=== PATIENT | male | born 1945 | race Caucasian/White ===

== ENCOUNTER 2017-07-19 09:18 | Inpatient (IN) | payer OTHER ==
[~2017-07-19] VITALS: Ht 177.8 cm; Wt 131.5 kg
--- NOTE | ~2017-07-19 | O ---
[facility] [place] [address] OPERATIVE REPORT Name: EDEL DUQUE Room #: 200-I ADM IN M.R.#: [id number] Admission: 07/19/17 Attend Phys: Bolivar Berry MD Discharge: Date of : 43 Report #: [id number] THIS REPORT FOR: //name// CC: JOHN Berry DATE OF SERVICE: 07/21/2017 SURGEON: Kaiden Reyez MD MOVING PICTURE OPERATOR: None. PREOPERATIVE DIAGNOSES: 1. Choledocholithiasis (status post preoperative ERCP with stone extraction and sphincterotomy). 2. Coronary artery disease status post CABG and cardiac stents x 3. 3. Obstructive sleep apnea. 4. Benign prostatic hypertrophy. 5. Morbid obesity (BMI 41.2). 6. Hyperlipidemia. 7. Gastroesophageal reflux disease. POSTOPERATIVE DIAGNOSES: 1. Acute hemorrhagic cholecystitis. 2. Choledocholithiasis (status post preoperative ERCP with stone extraction and sphincterotomy). 3. Coronary artery disease status post CABG and cardiac stents x 3. 4. Obstructive sleep apnea. 5. Benign prostatic hypertrophy. 6. Morbid obesity (BMI 41.2). 7. Hyperlipidemia. 8. Gastroesophageal reflux disease. PROCEDURE: 1. Laparoscopic cholecystectomy. 2. This is a modifier 22 operation based on the length of time necessary to perform the operation. The patient's morbid obesity/body habitus made visualization difficult. An additional 5 mm port was required to retract intra-abdominal content out of the way to gain visualization of the cystic duct. Coupled with acute inflammatory changes involving gallbladder and cystic duct (making cholangiogram not technically possible), this was quite a long operation causing this operation to take 2 hours and 16 minutes, substantially longer than the usual cholecystectomy with cholangiogram which takes 30-40 minutes. ANESTHESIA: General endotracheal anesthesia and local anesthetic. [facility] [address] [place] [address] OPERATIVE REPORT Name: EDEL DUQUE Minna Room #: 200-I [facility] IN [facility]#: [id number] Admission: 07/19/17 Attend Phys: Bolivar Berry MD Discharge: Date of : 44 Report #: [id number] ESTIMATED BLOOD LOSS: 50 mL. SPECIMEN: Gallbladder. COMPLICATIONS: None appreciated. INDICATIONS FOR PROCEDURE: This is a 72-year-old male patient who presented with several day history of epigastric/right upper quadrant abdominal pain after eating pizza on Monday. His cardiac enzymes are elevated. However, his chest pain was ruled to be noncardiac in nature. The patient was found to have a distended gallbladder with ductal dilatation on ultrasound with no evidence for gallbladder wall thickening or pericholecystic fluid. A positive sonographic Trent sign was present. The patient's bilirubin increased and an MRCP revealed choledocholithiasis. The patient underwent an ERCP with stone extraction and sphincterotomy. The patient was noted to be a difficult airway and based on this, it was elected to perform his cholecystectomy immediately after his ERCP, which required endotracheal intubation rather than extubating the patient and putting him through another intubation. Cholecystectomy is indicated. OPERATIVE FINDINGS: Upon entrance into the abdominal cavity, the gallbladder was seen to be acutely inflamed with omentum covering the gallbladder. Upon unroofing the gallbladder, it was acutely inflamed with hemorrhagic changes. The patient's liver, small bowel and stomach appeared normal in the surrounding area. He had moderate amount of intraabdominal tissue that occluded the view of the cystic duct and as a result of this, I elected to place another 5 mm port to retract the tissue to see. The patient required extreme positioning as well. The critical view consisting of cystic artery, cystic duct and lower edge of the gallbladder forming a window through which the liver was visible was seen prior to dividing the cystic duct. The duct itself was thickened/acutely inflamed and short and this precluded my ability to perform a cholangiogram. After dividing the duct, it slightly retracted and was difficult to manage in that I was unable to place an Endoloop on the duct for closure. I ultimately had to intracorporeally place a uscdoi-lm-txear 3-0 Vicryl suture for closure of this. The cystic duct was also sealed with Tisseel. After removing the gallbladder from the abdominal cavity, there was an area of bile emanating from the liver bed. This required placement of a 3-0 Vicryl suture as well with good control of the leak. This too was reinforced with Tisseel. A 8 mL of Tisseel was used in total. At the conclusion of the operation, the sponge, needle, and instrument counts were correct. There was no evidence for iatrogenic injury. The gallbladder was opened on the backtable. Sludge and a few small stones were seen within the gallbladder with acute hemorrhagic changes transmurally. DESCRIPTION OF PROCEDURE IN DETAIL: After the risks, benefits and expectations of the operation were discussed in detail with the patient, informed consent was obtained earlier today with a planned surgery for tomorrow. The patient [facility] [address] [place] [address] OPERATIVE REPORT Name: EDEL DUQUE Room #: 200-I [facility] IN [place]#: [id number] Admission: 07/19/17 Attend Phys: Bolivar Berry MD Discharge: Date of : 44 Report #: [id number] underwent an ERCP and again, due to his difficult airway, it was elected to not extubate the patient but rather keep him intubated and perform his operation today. He has been receiving scheduled IV antibiotics. He was taken to the operating room and placed in the supine position. SCDs were placed on the patient's bilateral lower extremities and pneumatic compression was initiated. The patient's abdomen was then prepped and draped in the standard sterile fashion. A timeout was performed to identify the correct patient and procedure. Local anesthetic was infiltrated into the skin and subcutaneous tissue in the supraumbilical area where a small curvilinear incision was made with #15 blade scalpel. Dissection was carried down to the fascia. A 10 mm port was then placed intraperitoneally with a 0-degree angled laparoscope. Pneumoperitoneum was achieved with insufflation of carbon dioxide to 15 mmHg. A 30-degree angled laparoscope was inserted. A subxiphoid 5 mm and right subcostal 5 mm ports x 2 were placed under direct visualization after local anesthetic was infiltrated into skin and subcutaneous tissue and appropriately sized incisions were made. Findings are as noted above. The patient was rotated to his left. The dome of the gallbladder was retracted in cephalad direction. The omentum was peeled off the gallbladder. However, visualization of the cystic duct was not possible. An additional 5-mm port was placed under direct visualization after local anesthetic was infiltrated into the skin and subcutaneous tissue and an appropriately sized incision was made. The port was placed in the right lower abdomen through a small transverse incision. The small bowel and omentum were retracted inferiorly in order to visualize the area. The gallbladder peritoneum was then scored medially and laterally with the ultrasound dissector and electrocautery. Dissection was carried out on the cystic artery and cystic duct to identify both structures as the only 2 structures entering the gallbladder. The cystic duct itself was thickened and short and at this point, I recognized that a cholangiogram was not technically possible. The duct also appeared to be dilated. The cystic artery was divided with the ultrasonic dissector with good hemostasis. The cystic duct was divided with the ultrasonic dissector at its junction with the neck of the gallbladder. Prior to dividing the cystic duct, the cystic duct was dissected as much as possible so that I would have room for placement of an Endoloop. After dividing the duct, the duct retracted and I attempted to place PDS Endoloops x 2 without success. I then elected to close the cystic duct with a hiuiko-gu-zuipx 3-0 Vicryl suture intracorporeally. This was performed without difficulty. The gallbladder was then dissected out of the liver bed with combination of electrocautery and the ultrasound dissector. Bleeding points were made hemostatic with electrocautery while dissecting the gallbladder free. The gallbladder was then completely detached from the liver bed, placed in an Endopouch and removed through the supraumbilical port site with some stretching of the fascia. A zyldwh-jp-zpvbt 0 PDS suture was placed under direct visualization with the Dago-Simran laparoscopic fascial closure device. The suture was tagged and the port was replaced. The abdominal cavity was reentered. The liver bed appeared hemostatic and the suture on the cystic duct appeared to be secure. Upon further examination of the liver bed, there [address] [address] OPERATIVE REPORT Name: EDEL DUQUE Room #: 200-I ADM IN M.R.#: [id number] Admission: 07/19/17 Attend Phys: Bolivar Berry MD Discharge: Date of : 44 Report #: [id number] appeared to be some bile emanating from a small ductule in the liver bed. This may have represented a duct of Luschka. An additional joyhwj-ti-zdcve 3-0 Vicryl suture was placed with good control of the bile leak. Bleeding points were made hemostatic with electrocautery. After suctioning the abdominal cavity and ensuring final hemostasis and no further bile leak, 8 mL of Tisseel was applied to the liver bed and cystic duct with the Curselospray aerosolizer. After doing so, a 19-Namibian JHON drain was placed within the abdominal cavity and brought out through the right lateral port site. The drain was secured to the skin with a 2-0 nylon suture. Intraabdominally, the drain was positioned such that it would lie along the subhepatic space. The abdominal cavity was suctioned and return of all drainage ran clear. No other significant intra-abdominal pathology was seen. The port was removed and the fascial suture was tied under direct visualization to ensure no incorporation of intra-abdominal content. The abdominal cavity was then desufflated and the remaining ports were removed. Interrupted subcuticular 4-0 Monocryl sutures and Dermabond were used to close the skin incisions. The patient tolerated the procedure well. He was awakened, extubated, and taken to recovery room in stable condition with no apparent intraoperative complications. <ELECTRONICALLY SIGNED> By: Kaiden Reyez MD, FACS 07/23/17 1129 1807 1859 Kaiden Reyez MD, FACS /nt
--- NOTE | ~2017-07-19 | EKG ---
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 : 1945 Requested By: Jessika Abbott Order Number: [id number] MD: Rob Bergeron Measurements Intervals Tunas Rate: 74 P: -12 [place]: 200 QRS: 24 QRSD: 121 T: 26 QT: 429 QTc: 476 Interpretive Statements Sinus rhythm Poor R wave progression Nonspecific ST and T wave abnormality Compared to ECG 12/26/2011 07:55:43 Inferior injury pattern is no longer present Electronically Signed On 07-20-2017 8:17:44 CHARGE ENTRY CLERK by Rob Bergeron [email or web address] <ELECTRONICALLY SIGNED> By: Rob Bergeron MD, [facility] 07/20/17 0817 09 Rob Bergeron MD, [facility] /EPI
--- NOTE | ~2017-07-19 | HC ---
[facility] [place] [address] CONSULTATION Name: EDEL DUQUE Room #: 200-I ADM IN .R.#: [id number] Admission: 07/19/17 Attend Phys: Bolivar Berry MD Discharge: Date of : 44 Report #: [id number] THIS REPORT FOR: //name// CC: Estelle Adrien Berry DATE OF SERVICE: 07/19/2017 REFERRING PROVIDER: Bolivar Berry MD REASON FOR CONSULTATION: Abdominal pain. HISTORY OF PRESENT ILLNESS: The patient is a 72-year-old male who presented with a 4-day history of abdominal pain, bloating and nausea. The patient ate pizza for lunch on Monday and took a nap when he woke up with bloating and not feeling well. The patient took MiraLax and had a bowel movement and felt slightly better. The patient returned from [place] last week where he was visiting for a 2-week vacation and went to work on Monday and Monday. As the patient got off work on Monday, he began to develop epigastric abdominal pain with nausea and vomiting and underwent evaluation with laboratories and ultrasound of the abdomen as well as cardiology workup. The patient's labs showed just a very minimal leukocytosis with a white blood cell count of 12.5 thousand, otherwise his liver function numbers and hemoglobin were all within normal limits. Ultrasound of the abdomen showed a dilated common bile duct to 11 mm with a positive sonographic Trent sign. However, he had no evidence of gallbladder calculi, wall thickening or pericholecystic fluid seen. The patient has been seen by Gastroenterology for which an MRCP has been ordered, but I have been asked to evaluate in the meantime. 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 PAST SURGICAL HISTORY: He has undergone a CABG, tonsillectomy, wrist fracture repair and appendectomy. HOME MEDICATIONS: Aspirin, Lipitor, metoprolol, glucosamine/chondroitin, Flomax, nitroglycerin, Prilosec, Prozac, finasteride, Synthroid and multivitamin. ALLERGIES: No known drug allergies. FAMILY HISTORY: Reviewed and noncontributory. SOCIAL HISTORY: The patient does not utilize tobacco, alcohol or illicit drugs. [address] [address] CONSULTATION Name: EDEL DUQUE Room #: 200-I [facility] IN [facility]#: [id number] Admission: 07/19/17 Attend Phys: Bolivar Berry MD Discharge: Date of : 44 Report #: [id number] REVIEW OF SYSTEMS: GENERAL: The patient denies nocturnal fevers or chills. HEENT: No change in vision or change in hearing. NECK: No swelling or difficulty swallowing. HEART: No chest pain or palpitations. LUNGS: No cough or shortness of breath. ABDOMEN: Abdominal pain, nausea and vomiting. GENITOURINARY: No dysuria or hematuria. ENDOCRINE: No polyuria or polydipsia. HEMATOLOGIC: No history of bleeding or easy bruising. EXTREMITIES: No history of weakness or limited range of motion. NEUROLOGIC: No history of syncope or near syncopal episodes. SKIN AND INTEGUMENT: No history of abnormal lesions or moles. PSYCHIATRIC: No history of anxiety or depression. PHYSICAL EXAMINATION: VITAL SIGNS: Temperature 98.6, pulse 70, respirations 18 and blood pressure 148/79. He stands 5 feet 10 inches tall and weighs 278 pounds. GENERAL: Alert and oriented, in no acute distress. HEENT: Normocephalic and atraumatic. Pupils are equal, round and reactive to light. NECK: Supple without lymphadenopathy. Trachea is midline. HEART: Regular rate and rhythm. LUNGS: Clear to auscultation bilaterally. ABDOMEN: Obese, soft and nondistended. He is tender to palpation with deep palpation in the right upper quadrant, but does not have any guarding, rebound or peritoneal signs or symptoms. GENITOURINARY: Normal external male genitalia. EXTREMITIES: No clubbing, cyanosis or edema. NEUROLOGIC: Cranial nerves 2-12 are grossly intact. PSYCHIATRIC: Normal mood and affect. SKIN AND INTEGUMENT: No abnormal lesions or moles. LABORATORY AND X-RAY DATA: CBC shows white blood cell count of 12.5 thousand, hemoglobin 15.7 and platelets 217,000. He has a minimal left shift of 72% neutrophils. The patient's creatinine is normal at 0.9. Liver function enzymes are normal except his transaminases are just minimally elevated with an AST of 39 and ALT of 70. His bilirubin is normal at 0.9. Troponins negative. BNP is normal at 77. Ultrasound of the abdomen as per HPI shows a dilated common bile duct to 11 mm with a positive sonographic Trent sign, but no evidence of gallstones, gallbladder wall thickening or pericholecystic fluid. ASSESSMENT AND PLAN: A 72-year-old obese male with multiple medical problems who presents with a distended gallbladder with discomfort in the right upper quadrant and a dilated common bile duct, but no evidence of calculi. The [address] [address] CONSULTATION Name: EDEL DUQUE Room #: 200-I ADM IN [facility]#: [id number] Admission: 07/19/17 Attend Phys: Bolivar Brery MD Discharge: Date of : 44 Report #: [id number] patient could certainly have passed a stone and have early choledocholithiasis to where he has not mounted a laboratory response, but he could also have acute acalculous cholecystitis possibly from something he ate in [place]. Nonetheless, an MRCP has been ordered and I recommend continuation of this. If this is negative, he will necessitate a PIPIDA scan for definitive workup and possibly a laparoscopic cholecystectomy with cholangiogram. Risks, benefits and alternatives of that have been discussed with the patient in detail and he agrees to proceed with the workup as outlined. I sincerely appreciate this consult. I will follow closely and leave any further recommendations in the patient's chart as appropriate. <ELECTRONICALLY SIGNED> By: Ceasar Naranjo MD, FACS 07/20/17 0744 1727 Ceasar Naranjo MD, FACS /nt
--- NOTE | ~2017-07-19 | P ---
[facility] [place] [address] PROCEDURE REPORT Name: EDEL DUQUE Room #: 200-I [facility] IN .R.#: [id number] Admission: 07/19/17 Attend Phys: Bolivar Berry MD Discharge: 07/23/17 Date of : 44 Report #: [id number] THIS REPORT FOR: //name// CC: Estelle Reyez MD DATE OF SERVICE: 07/21/2017 INPATIENT ENDOSCOPIC RETROGRADE CHOLANGIOPANCREATOGRAPHY REPORT BRIEF HISTORY: The patient is a 72-year-old male with pain and evidence of dilated biliary tree and choledocholithiasis. PREOPERATIVE DIAGNOSIS: Choledocholithiasis. POSTOPERATIVE DIAGNOSES: 1. Choledocholithiasis. 2. Dilated biliary tree. MEDICATIONS: Deep sedation with propofol per anesthesia. SPECIMEN: Stone and sludge removed from duct, left in duodenum. ESTIMATED BLOOD LOSS: None. PROCEDURE: Endoscopic retrograde cholangiopancreatography with endoscopic sphincterotomy and stone extraction with balloon sweep. FINDINGS: Prior to intubation and general anesthesia, the procedure of ERCP, sphincterotomy, stone extraction as well as potential risks and its complications were discussed with the patient. He indicates he understands and desire that we proceed. DESCRIPTION OF PROCEDURE: The patient was taken to the invasive radiology suite and induced with general anesthesia and placed in the prone position. Subsequently, a Fuji side-viewing endoscope was inserted in the cervical esophagus and advanced through the stomach, across the pylorus into the duodenum. Within and duodenum, the papilla was identified. Initial cannulation of the papilla resulted in deep cannulation. Contrast was injected and he was noted to have a dilated biliary tree and the common hepatic duct, common bile duct and central hepatics were noted to be dilated. The area of maximum dilation in the common hepatic was about 10 mm. Injection of contrast revealed a filling defect in the distal duct consistent with a 4 mm stone seen on MRCP. Subsequently, a sphincterotomy was completed without difficulty. With the [facility] [address] [place] [address] PROCEDURE REPORT Name: EDEL DUQUE Minna Room #: 200-I [facility] IN [facility].#: [id number] Admission: 07/19/17 Attend Phys: Bolivar Berry MD Discharge: 07/23/17 Date of : 44 Report #: [id number] sphincterotomy, there was a gush of yellow bile from the biliary tree and a small amount of sludge and debris. We then made a balloon sweep and on first pass of the balloon sweep, a smooth, round 4 mm pigmented stone was removed from the biliary tree. Along with this came blackish sludge and particles and gravel-like material as well as a yellowish sludge material. We made several further balloon sweeps without additional stones being removed or identified. We then used a balloon the biliary tree and obtained a cholangiogram and the duct was clear. The balloon and catheter were withdrawn and there was good drainage from the common bile duct. Scope was withdrawn. The patient tolerated the procedure well. CONDITION OF THE PATIENT UPON DISPOSITION: ERCP and sphincterotomy and stone extraction completed. The patient tolerated the procedure well. We will keep the patient fasting for another 4 hours, then he may have clear liquids. If does well, laparoscopic cholecystectomy tomorrow would be reasonable. <ELECTRONICALLY SIGNED> By: Wei Chandra MD 07/25/17 1617 1326 2055 Wei Chandra MD /nt
--- NOTE | ~2017-07-19 | S ---
[facility] [place] [address] SURGICAL PATH RPT PROCEDURE Name: J[facility]SE [facility]SE Room #: 200-I DIS IN M.R.#: [id number] Admission: 07/19/17 Date of : 43 Discharge: 07/23/17 Report #: [id number] Path Case #: [id number] PATHOLOGY REPORT COLLECTION DATE: 07/21/2017 RECEIVED DATE: 07/24/2017 SUBMITTING PHYS: Dr. Kaiden Reyez OTHER PHYS: Dr. Bolivar Jurado SPECIMEN(S) RECEIVED: A.Gallbladder * * * * * * * * * * * * FINAL DIAGNOSIS: Gallbladder, cholecystectomy: - Moderate chronic cholecystitis. - Cholesterolosis. (IUV:db; 07/25/2017) PATHOLOGIST: Trinidad Amaya M.D. REPORT ELECTRONICALLY SIGNED BY: Trinidad Amaya M.D. DATE/TIME: 07/25/2017 15:37 * * * * * * * * * * * * GROSS PATHOLOGY: Received in formalin labeled "[facility]se House gallbladder," is a 10.1 x 4.4 x 3.9 cm, previously opened gallbladder with dark brown, wrinkled serosal surfaces. Opening the gallbladder reveals dark webb, velvety mucosa and an average wall thickness of 0.2 cm. Calculi are not present (upon filtration of the specimen container and contents) and no masses are noted grossly. Eye Glass Frame Polisher sections from the body and fundus are submitted along with the proximal margin in cassette A1. (TSD; 07/24/2017) CLINICAL HISTORY: Gallstone pancreatitis INITIAL CPT CODE(S): A; 29733 Professional services performed by [facility] at [facility] [address] , [place] [address] [facility] [address] [place] [address] SURGICAL PATH RPT PROCEDURE Name: JESSE HOUSE Room #: 200-I DIS IN M.R.#: [id number] Admission: 07/19/17 Date of : 43 Discharge: 07/23/17 Report #: [id number] Path Case #: [id number] Technical services performed by [facility] at [address] [place] [address], [place] [address]. [facility] [address] [place] [address] PHONE: [phone] DIRECTOR: Kb Lee M.D. * * * END OF REPORT * * *
[~2017-07-19 09:18] MED LIST: ADULT LOW DOSE81 MG PO; EFFIENT10 MG PO; FERREX-150 PLU150 MG PO; FINASTERIDE5 MG PO; GLUCOSAMINE CH1 EAC7 PO; HYDROCODON-ACE1 EAC7 PO; HYTRIN10 MG PO; LEVOTHROID175 MCG PO; LIPITOR40 MG PO; LOPRESSOR 12.12.5 MG PO; MULTIVITAMINS PO; NITROQUICK0.4 MG SUBLING; PERCOCET 5-3251 EACH PO; PHISOHEX148 ML TP; PLAVIX 75 MG TA75 MG PO; PRILOSEC 20 MG20 MG PO; PROZAC40 MG PO; SENOKOT-S1 TA1 PO; TAMSULOSIN HCL0.4 M1 PO; ZESTRIL10 MG PO; ZESTRIL5 MG PO
[2017-07-19 09:41] LABS: ABSOLUTE NEUTROPHILS 8.9 thou/uL (1.4-8.2); EOSINOPHILS 1.3 % (0.0-3.0); HEMOGLOBIN 15.7 gm/dL (14.0-18.0); LYMPHOCYTES 16.7 % (24.0-44.0); MCH 32.2 pg (26.0-34.0); MCV 94.5 fL (80.0-100.0); MONOCYTES 9.4 % (1.0-8.0); PLATELET COUNT 217 thou/uL (150-400); POLYS 71.6 % (36.0-66.0); RBC 4.87 mil/uL (4.50-6.00); RDW 13.8 % (10.5-14.5); WBC 12.5 thou/uL (4.0-11.0)
[2017-07-19 09:50] VITALS: BP 147/74
[2017-07-19 09:53] LABS: ANION GAP 9 mmol/L (7-16); BUN 13 mg/dL (7-18); CALCIUM 9.3 mg/dL (8.5-10.1); CHLORIDE 100 mmol/L (98-107); CO2 30 mmol/L (21-32); CREATININE 0.9 mg/dL (0.7-1.3); GLUCOSE 144 mg/dL (74-106); SODIUM 139 mmol/L (136-145)
[2017-07-19 10:01] LABS: ALBUMIN 3.8 g/dL (3.4-5.0); SGOT 39 U/L (15-37); SGPT 70 U/L (30-65); TOTAL BILIRUBIN 0.9 mg/dL (<0.1-1.0); TOTAL PROTEIN 7.7 g/dL (6.4-8.2); TROPONIN-I < 0.04 ng/mL (<0.06)
[2017-07-19 12:15] VITALS: BP 160/95
[2017-07-19 16:00] VITALS: BP 148/79
[2017-07-19 19:23] VITALS: BP 151/84
[2017-07-20 01:06] LABS: GLYCOHEMOGLOBIN (HGB A1C) 6.2 % (4.8-5.6)
[2017-07-20 03:18] LABS: CHOLESTEROL 98 mg/dL (<200); DIRECT BILIRUBIN 0.3 mg/dL (<0.1-0.3); HDL CHOLESTEROL 47 mg/dL (>40); LDL CHOLESTEROL 41 mg/dL (<100); LIPASE 79 U/L (73-393); SGOT 23 U/L (15-37); SGPT 48 U/L (30-65); TC:HDL 2.1 Ratio (Not establshd); TOTAL BILIRUBIN 1.2 mg/dL (<0.1-1.0); TRIGLYCERIDE 52 mg/dL (<150); VLDL 10 mg/dL (<40)
[2017-07-20 05:42] VITALS: BP 118/70
[2017-07-20 08:22] VITALS: BP 125/77
[2017-07-20 11:40] VITALS: BP 132/81
[2017-07-20 16:45] VITALS: BP 104/54
[2017-07-20 19:20] VITALS: BP 101/54
[2017-07-21 04:49] LABS: HEMATOCRIT 36.4 % (42.0-52.0); MCHC 34.6 g/dL (28.0-37.0); MCV 95.4 fL (80.0-100.0); RBC 3.82 mil/uL (4.50-6.00); RDW 13.7 % (10.5-14.5); WBC 7.8 thou/uL (4.0-11.0)
[2017-07-21 04:59] LABS: HEMOGLOBIN 12.6 gm/dL (14.0-18.0)
[2017-07-21 05:06] LABS: CALCIUM 8.1 mg/dL (8.5-10.1); POTASSIUM 4.1 mmol/L (3.5-5.1)
[2017-07-21 05:28] VITALS: BP 116/73
[2017-07-21 07:02] VITALS: BP 110/63
[2017-07-21 20:33] VITALS: BP 140/87
[2017-07-22] VITALS (7 sets, daily range): BP systolic 97–153; BP diastolic 54–88
[2017-07-22 04:37] LABS: HEMATOCRIT 38.2 % (42.0-52.0); HEMOGLOBIN 13.1 gm/dL (14.0-18.0); MCH 32.9 pg (26.0-34.0); MCHC 34.4 g/dL (28.0-37.0); MCV 95.4 fL (80.0-100.0); RDW 13.4 % (10.5-14.5); WBC 13.4 thou/uL (4.0-11.0)
[2017-07-22 04:49] LABS: ALBUMIN 2.6 g/dL (3.4-5.0); CALCIUM 7.8 mg/dL (8.5-10.1); CREATININE 0.7 mg/dL (0.7-1.3); POTASSIUM 4.2 mmol/L (3.5-5.1); TOTAL BILIRUBIN 0.5 mg/dL (<0.1-1.0); TOTAL PROTEIN 6.1 g/dL (6.4-8.2)
[2017-07-23 04:57] VITALS: BP 120/71
[2017-07-23 07:25] VITALS: BP 114/62
[2017-07-23] MEDS ORDERED: SENNA-S TABLET1 EACH PO (09:40)
[2017-07-23] MEDS ORDERED: HYDROCODONE-AP1 EAC6 PO (09:40)
[2017-07-23 11:54] VITALS: BP 114/62
== END 2017-07-23 13:01 | disposition home or self-care (01) | DRG 417 ==
LOC: ER 09:18 → EROBS 11:23 → 2N 11:23
PROVIDERS: Hospitalist; Nurse Practitioner; Physician Assistant; Surgery
PROC: 5A09357 Assistance with Respiratory Ventilation, Less than 24 Consecutive Hours, Continuous Positive Airway Pressure (ICD-10-PCS; principal; 2017-07-21)
PROC: 0FT44ZZ Resection of Gallbladder, Percutaneous Endoscopic Approach (ICD-10-PCS; principal; 2017-07-21)
PROC: 0FC98ZZ Extirpation of Matter from Common Bile Duct, Via Natural or Artificial Opening Endoscopic (ICD-10-PCS; 2017-07-21)
PROC: 5A09357 Assistance with Respiratory Ventilation, Less than 24 Consecutive Hours, Continuous Positive Airway Pressure (ICD-10-PCS; 2017-07-22)
PROC: 5A09357 Assistance with Respiratory Ventilation, Less than 24 Consecutive Hours, Continuous Positive Airway Pressure (ICD-10-PCS; 2017-07-23)
DX: K80.42 Calculus of bile duct with acute cholecystitis without obstruction (principal); E43 Unspecified severe protein-calorie malnutrition; Z68.41 Body mass index [BMI] 40.0-44.9, adult; I10 Essential (primary) hypertension; E78.5 Hyperlipidemia, unspecified; I25.10 Atherosclerotic heart disease of native coronary artery without angina pectoris; K21.9 Gastro-esophageal reflux disease without esophagitis; G47.33 Obstructive sleep apnea (adult) (pediatric); E03.9 Hypothyroidism, unspecified; N40.0 Benign prostatic hyperplasia without lower urinary tract symptoms; E66.01 Morbid (severe) obesity due to excess calories; K76.0 Fatty (change of) liver, not elsewhere classified; Z66 Do not resuscitate; Z95.1 Presence of aortocoronary bypass graft; I25.2 Old myocardial infarction; Z95.5 Presence of coronary angioplasty implant and graft; Z90.49 Acquired absence of other specified parts of digestive tract; Z87.891 Personal history of nicotine dependence; Z79.82 Long term (current) use of aspirin; Z79.899 Other long term (current) drug therapy
CPT/HCPCS: 10081; 50010; 50101; 50249; 50331; 50411; 50555; 50558; 50962; 51297; 51436; 51489; 51975; 52182; 52265; 52266; 53307; 54022; 54118; 55245; 55317; 56462; 56524; 56525; 56526; 62110; 62900; 64018; 64031; 70005

== ENCOUNTER 2019-01-22 20:57 | Inpatient (IN) | payer OTHER ==
[~2019-01-22] VITALS: Ht 177.8 cm; Wt 124.1 kg
[~2019-01-22 20:57] MED LIST changes: +HYDROCODONE-AP1 EAC6 PO; -LOPRESSOR 12.12.5 MG PO; +METOPROLOL SUCC25 M1 PO; +SENNA-S TABLET1 EACH PO
[2019-01-22 20:59] VITALS: BP 121/64
[2019-01-22 21:41] LABS: ABSOLUTE NEUTROPHILS 14.4 thou/uL (1.4-8.2); BASOPHILS 0.4 % (0.0-2.0); HEMATOCRIT 38.2 % (42.0-52.0); HEMOGLOBIN 13.2 gm/dL (14.0-18.0); LYMPHOCYTES 3.1 % (24.0-44.0); MCH 32.3 pg (26.0-34.0); MCHC 34.5 g/dL (28.0-37.0); MCV 93.8 fL (80.0-100.0); MONOCYTES 5.8 % (1.0-8.0); PLATELET COUNT 121 thou/uL (150-400); POLYS 90.7 % (36.0-66.0); RBC 4.07 mil/uL (4.50-6.00); RDW 13.9 % (10.5-14.5); WBC 15.8 thou/uL (4.0-11.0)
[2019-01-22 21:48] LABS: ANION GAP 13 mmol/L (7-16); BUN 18 mg/dL (7-18); CALCIUM 8.7 mg/dL (8.5-10.1); CHLORIDE 98 mmol/L (98-107); CO2 26 mmol/L (21-32); CREATININE 1.1 mg/dL (0.7-1.3); GLUCOSE 217 mg/dL (74-106); POTASSIUM 3.3 mmol/L (3.5-5.1); SODIUM 137 mmol/L (136-145)
[2019-01-22 21:58] LABS: TROPONIN-I <0.06 ng/mL (<0.06)
[2019-01-22 22:10] LABS: ALBUMIN 3.3 g/dL (3.4-5.0); DIRECT BILIRUBIN 1.1 mg/dL (<0.1-0.3); TOTAL BILIRUBIN 2.3 mg/dL (<0.1-1.0); TOTAL PROTEIN 7.1 g/dL (6.4-8.2)
[2019-01-23 01:00] VITALS: BP 137/75
[2019-01-23 04:50] VITALS: BP 137/70
--- NOTE | 2019-01-23 05:18 | NUR ---
PATIETS CARES WERE ASSUMED AT ADMITION FROM THE ED. PATIENT WAS ASDMITTED, ASSESSED AND MEDS WERE GIVEN PER ORDERS. HOURLY ROUNDS WERE MADE. THE BED IS IN A LOW AND LOCKED POSITION
[2019-01-23 06:05] LABS: HEMATOCRIT 35.4 % (42.0-52.0); HEMOGLOBIN 12.1 gm/dL (14.0-18.0); MCH 32.2 pg (26.0-34.0); MCHC 34.2 g/dL (28.0-37.0); MCV 93.9 fL (80.0-100.0); RBC 3.77 mil/uL (4.50-6.00); RDW 14.1 % (10.5-14.5)
[2019-01-23 06:34] LABS: CALCIUM 8.4 mg/dL (8.5-10.1); CREATININE 0.8 mg/dL (0.7-1.3); POTASSIUM 3.2 mmol/L (3.5-5.1)
[2019-01-23 07:23] VITALS: BP 122/74
[2019-01-23 09:58] LABS: ALBUMIN 2.9 g/dL (3.4-5.0); DIRECT BILIRUBIN 0.6 mg/dL (<0.1-0.3); TOTAL BILIRUBIN 1.8 mg/dL (<0.1-1.0); TOTAL PROTEIN 6.6 g/dL (6.4-8.2)
[2019-01-23 11:58] LABS: MCH 32.1 pg (26.0-34.0); MCHC 34.2 g/dL (28.0-37.0); MCV 93.7 fL (80.0-100.0); RBC 3.73 mil/uL (4.50-6.00); RDW 13.9 % (10.5-14.5); WBC 11.7 thou/uL (4.0-11.0)
[2019-01-23 12:07] LABS: CALCIUM 8.3 mg/dL (8.5-10.1); CREATININE 0.8 mg/dL (0.7-1.3)
[2019-01-23 12:14] LABS: APTT 33.8 Seconds (24.5-32.8); INR 1.2; PROTIME 12.4 Seconds (9.3-11.4)
--- NOTE | 2019-01-23 13:19 | EKG ---
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 : 1945 Requested By: Alena Ruffin Order Number: [id number] MD: Rob Bergeron Measurements Intervals [place] Rate: 72 P: -20 MD: 202 QRS: 32 QRSD: 108 T: 38 QT: 479 QTc: 525 Interpretive Statements Sinus rhythm Abnormal R-wave progression, late transition Possible Inferior infarct, old Abnormal T, consider ischemia, anterior leads Prolonged QT interval Compared to ECG 07/19/2017 09:21:32 T-wave abnormality now present Electronically Signed On 01-23-2019 13:18:58 CDT by Rob Bergeron [email or web address] <ELECTRONICALLY SIGNED> By: Rob Bergeron MD, [facility] 01/23/19 1318 12 12 Rob Bergeron MD, [facility] /EPI
[2019-01-23 15:52] LABS: URINE BILIRUBIN NEGATIVE (Negative); URINE BLOOD 2+ (Negative); URINE CLARITY CLEAR; URINE COLOR YELLOW; URINE GLUCOSE-RANDOM* NEGATIVE (Negative); URINE KETONES NEGATIVE (Negative); URINE LEUKOCYTES-REFLEX NEGATIVE (Negative); URINE NITRITE-REFLEX NEGATIVE (Negative); URINE PROTEIN (DIPSTICK) TRACE (Negative); URINE SPECIFIC GRAVITY <= 1.005 (1.005-1.035); URINE UROBILINOGEN 0.2 E.U./dl (0.2-1.0)
[2019-01-23 16:05] LABS: BACTERIA-REFLEX None Seen /HPF (None Seen); CASTS None Seen /LPF (None Seen); CRYSTALS None Seen /LPF (None Seen); SQUAMOUS 0-3 Few /LPF (0-3); URINE RBC 0-2 Rare /HPF (0-2); URINE WBC-REFLEX None Seen /HPF (0-5)
[2019-01-23 16:25] VITALS: BP 122/70
[2019-01-23 19:15] VITALS: BP 123/61
--- NOTE | 2019-01-23 20:04 | NUR ---
PATIENT STATUS IMPROVED THROUGHOUT THE DAY. VSS MONITOR SB TO SR. UP AND ABOUT IN THE ROOM. STATES THAT PAIN IS RELIEVED AND TOLERABLE AT A 3/10. REASSURANCE GIVEN AND UPDATED TO THE POC.
[2019-01-24 00:09] LABS: GLYCOHEMOGLOBIN (HGB A1C) 6.3 % (4.8-5.6)
--- NOTE | 2019-01-24 02:19 | NUR ---
PATIENTS CARES WERE ASSUMED AT SHIFT CHANGE. PATIENT WAS ASSESSED AND MEDS WERE PASSED. PATIENT WEARS HIS OWN CPAP FROM HOME AND TONIGHT HE WAS HOOKED TO A CAPNOGRAPHY TO MONITOR BETTER. HOURLY ROUNDING WAS DONE. THE BED IS IN A LOW AND LOCKED POSITION.
[2019-01-24 04:23] VITALS: BP 122/71
--- NOTE | 2019-01-24 09:00 | HC ---
[facility] [place] [address] CONSULTATION Name: EDEL DUQUE Room #: 206-P ADM IN M.R.#: [id number] Admission: 01/22/19 Attend Phys: Su Daniels Discharge: Date of : 43 Report #: [id number] THIS REPORT FOR: //name// CC: NANCY Reyna MD DATE OF SERVICE: 01/23/2019 GASTROENTEROLOGY CONSULTATION CHIEF COMPLAINT: This is a very pleasant 73-year-old male who presented to [facility] Emergency Room with a chief complaint of ongoing mid epigastric, nonradiating pain since Monday, approximately 3 days ago. The pain began abruptly. The patient took some simethicone because he felt a lot of pressure and thought that he might have gas and he also took some Pepto-Bismol on Monday. The pain has persisted since then and it feels exactly like his choledocholithiasis did last year, when he underwent a sphincterotomy for choledocholithiasis and sphincterotomy and stone extraction and a cholecystectomy. He also reports that his urine has been darker brownish yellow color and that his stools have been mccabe colored. He has had fevers to 102 at home. He has had no fever in the hospital. His white blood cell count is 15,000. His liver enzymes are all elevated including the bilirubin, which was 2.3 yesterday and is 1.8 today. His lipase is normal. PAST MEDICAL HISTORY: Significant for the choledocholithiasis and ERCP, sleep apnea, hypertension, hyperlipidemia, hypothyroidism, obesity, coronary artery disease with stents. He also has diastasis recti. He has an infrarenal abdominal aortic aneurysm that is now 7 cm in size. He has gastroesophageal reflux and sleep apnea and obesity. PAST SURGICAL HISTORY: Significant for coronary artery bypass grafting and then he underwent cardiac catheterization for stent placement. He has 3 stents present. He has undergone appendectomy, tonsillectomy and adenoidectomy, some surgery on his left hand and he had an ERCP with sphincterotomy [place] [address] Chandra. ALLERGIES: CODEINE which causes pruritus. MEDICATIONS: Prior to admission included aspirin, Lipitor, finasteride, Prozac, glucosamine chondroitin, Hyrum 5/325, Synthroid or Levothroid, Lopressor, multiple vitamins, nitroglycerin sublingual, Prilosec 20 mg a day, Senna-S tablets p.r.n. for constipation and tamsulosin 0.4 [place] [address] CONSULTATION Name: EDEL DUQUE Room #: 206-P [facility] IN M.R.#: [id number] Admission: 01/22/19 Attend Phys: Su Daniels Discharge: Date of : 43 Report #: [id number] SOCIAL HISTORY: He no longer smokes. He used to smoke in the past. He does drink about 1 beer per week. He has never had a blood transfusion. Denies any history of hepatitis. FAMILY HISTORY: Significant for colon cancer in his mother at age 75 and colon polyps in his sister. The patient has routine colonoscopies done on a regular basis and he has never had any colon polyps. His last colonoscopy was in 05/2018 and was also normal. REVIEW OF SYSTEMS: He denies any dysphagia or odynophagia. He does have gastroesophageal reflux and he takes omeprazole for that. He has no history of a hiatal hernia or peptic ulcer disease. He does have some diastasis recti. He says his weight is stable and his appetite is good. He denies any hematemesis, hematochezia or melena. He complains of some increasing gas in the last year or so. Recently, he had darkening of the urine and lightening of the stool to a grayish color. This followed the development of mid epigastric pain that we think is secondary to choledocholithiasis and taking Pepto-Bismol this past Monday. He denies any regular diarrhea, but he says that he has occasional diarrhea that is dietary related. I note that on his home medications, he does have Senna-S tablets 1 or 2 tabs every 12 hours as needed p.r.n. for constipation. He has pain in the mid epigastrium that it is nonradiating. PHYSICAL EXAMINATION: GENERAL: Reveals a well-developed, well-nourished, somewhat obese 73-year-old white male in no apparent distress at the time of the examination. He is awake, alert, oriented x 4 and cooperative and very pleasant to converse with. HEENT: He appears normocephalic, atraumatic and anicteric. HEART: Rate and rhythm are regular with a normal S1 and S2. LUNGS: Clear bilaterally. ABDOMEN: Soft. Bowel sounds are present in all 4 quadrants. There is no palpable organomegaly or mass. There is tenderness in the epigastrium, but no rebound or guarding. EXTREMITIES: Warm and dry. No peripheral cyanosis, clubbing or edema. NEUROLOGIC: He appears grossly intact without lateralizing signs. IMPRESSION: 1. Suspected choledocholithiasis/sludge recurrent after previous ERCPs with sphincterotomy, stone extraction for cholelithiasis in 07/2017. He also underwent a cholecystectomy at that time. Recently, the patient redeveloped similar pain symptoms and reports some darkening of the urine and mccabe stools since then. The mccabe stools follow taking Pepto-Bismol this past Monday for these symptoms. His liver enzymes are elevated. His lipase is normal. I suspect sludge or stones in the common bile duct on CT scan with pneumobilia present from his previous endoscopic retrograde cholangiopancreatography with sphincterotomy. There is poor visualization of the common bile duct on ultrasound probably just based on his size. Also, the patient was febrile at [facility] [address] [place] [address] CONSULTATION Name: DUNIAEDEL Room #: [address] [place] [address] [place] .R.#: [id number] Admission: 01/22/19 Attend Phys: Su Daniels Discharge: Date of : 43 Report #: [id number] home to 102 degrees. 2. Infrarenal abdominal aortic aneurysm size 7 cm with clot. This extends into the left iliac artery. The patient was seen this morning by Dr. Reyna and the patient stated that he recommended we get his GI problem resolved and then he will address the aneurysm. 3. Gastroesophageal reflux. 4. Sleep apnea. 5. Hypothyroidism. 6. Obesity. 7. Diastasis recti. 8. Hypertension. 9. Hyperlipidemia. 10. Family history of colon cancer in his mother at age 75. 11. Sister had colon polyps. 12. The patient has routine screening and has never had any colon polyps. 13. Hypokalemia. RECOMMENDATIONS: My recommendations are as follows: 1. I discussed with Dr. Perdomo and the patient about getting an MRCP today and if positive for choledocholithiasis, an ERCP can be done tomorrow by Dr. Perdomo with possible sphincterotomy and stones or sludge extraction. 2. Zosyn has been started 3.375 mg IV piggyback slowly at every 8 hours. 3. Soft low-fat diet as the patient states he is hungry and would like to eat. 4. N.p.o. after midnight for possible ERCP in the morning. 5. Replace potassium. 6. Protonix IV push for GERD when he is n.p.o. 7. Dr. Madison has seen this patient regarding 7 cm abdominal aortic aneurysm and will treat this after his biliary problems have resolved. Thank you very much for allowing us to participate in his care. <ELECTRONICALLY SIGNED> By: Dianna Palmer DO 01/24/19 0900 1120 2324 Dianna Palmer DO /nt
[2019-01-24 10:20] LABS: ALBUMIN 2.7 g/dL (3.4-5.0); DIRECT BILIRUBIN 0.4 mg/dL (<0.1-0.3); TOTAL BILIRUBIN 1.1 mg/dL (<0.1-1.0); TOTAL PROTEIN 6.5 g/dL (6.4-8.2)
[2019-01-24 11:18] VITALS: BP 124/67
--- NOTE | 2019-01-24 14:34 | NUR ---
ASSUMED CARE AT 0700, SHIFT ASSESSMENT DONE, NPO SINCE MIDNIGHT. WENT FOR MRCP THIS AM. RESULTS INDICATED THAT PT WILL NEED A ERCP, SCHEDULED FOR 01/25. NPO AT MIDNIGHT. PT HAS A KIDNEY ANEURYSM, POSSIBLE SURGERY WILL DR HOPKINS ON MONDAY. ROOM AIR DURING DAY TIME, CPAP AT NIGHT TIME. NSR ON TELE. WILL CONTINUE TO ASSESS AND ASSIST WITH ADLs NEEDED.
[2019-01-24 16:27] VITALS: BP 134/81
[2019-01-24 19:45] VITALS: BP 133/76
--- NOTE | 2019-01-25 03:24 | NUR ---
RECEIVED PT'S CARE AT 1910; PT. ON BED; RESTING WITH EYES CLOSED; AWAKED DURING SHIFT CHANGED; AOX4; DURING ASSESSMENT EDUCATED ABOUT NO TO EAT OR DRINK AFTER MIDNIGHT ST. UNDERSTANDING; C/O EPIGASTRIC PAIN; REQUESTED PRN PAIN MEDICATION; HR ON THE 50s; HS MEDICATION GIVEN; METOPROLOL GIVEN; EDUCATED ABOUT RELATION BETWEEN PAIN MEDICATION & METOPROLOL GIVEN WITH HR ON THE 50s; ST. UNDERSTANDING; ST. RATHER TO WAIT & REQUESTED PRN PAIN MEDICATION LATER IF NOT ABLE TO REST DUE TO PAIN; THROUGH THE NIGHT ABLE TO REST WITH EYES CLOSED; HR ON THE LATE 50s; NO C/O SOB; NO C/O DIZZINESS; C-PAP WEAR THROUGH THE NIGHT WHILE SLEEPING; NO C/O PAIN THROUGH THE NIGHT; ASSESSMENT CHARGED; FOLLOWING POC; MONITORING; WILL PASS ON REPORT.
[2019-01-25 04:26] VITALS: BP 130/71
[2019-01-25 05:24] LABS: HEMATOCRIT 37.3 % (42.0-52.0); HEMOGLOBIN 12.9 gm/dL (14.0-18.0); MCH 32.4 pg (26.0-34.0); MCHC 34.5 g/dL (28.0-37.0); MCV 93.8 fL (80.0-100.0); RBC 3.98 mil/uL (4.50-6.00); WBC 8.8 thou/uL (4.0-11.0)
[2019-01-25 05:48] LABS: ALBUMIN 2.9 g/dL (3.4-5.0); DIRECT BILIRUBIN 0.4 mg/dL (<0.1-0.3); TOTAL BILIRUBIN 1.1 mg/dL (<0.1-1.0); TOTAL PROTEIN 7.1 g/dL (6.4-8.2)
[2019-01-25 05:56] LABS: ALBUMIN 2.9 g/dL (3.4-5.0); CALCIUM 8.4 mg/dL (8.5-10.1); CREATININE 0.9 mg/dL (0.7-1.3); MAGNESIUM 1.9 mg/dL (1.8-2.4); POTASSIUM 3.3 mmol/L (3.5-5.1); TOTAL BILIRUBIN 1.1 mg/dL (<0.1-1.0)
--- NOTE | 2019-01-25 09:48 | NUR ---
ASSUMED CARE AT 0700, SHIFT ASSESSMENT DONE, VSS. NPO SINCE LAST NIGHT FOR ERCP TODAY. ROOM AIR, NSR, SB AT TIMES. REPORTED PAIN, DID NOT WANT PAIN MED AT THIS TIME. ACHS, NO COVERAGE. WILL CONTINUE TO ASSESS AND ASSIST WITH ADLs NEEEDED.
[2019-01-25 09:54] VITALS: BP 130/80
--- NOTE | 2019-01-25 12:19 | NUR ---
LEFT FOR ERCP AT 1100.
--- NOTE | 2019-01-25 16:41 | NUR ---
Chart reviewed and case discussed with the care team. CM visited with the pt at bedside. CM role introduced. Pt is a&x4 and lives in an indep home in a skilled nursing community in [place]. He has supportive neighbors and friends. His dtr is his dpoa if needed. He drives and maintains an active lifestyle. He denies any dc needs or concerns. He has a procedure today and awaiting a AAA stent placement on Monday. No cm interventions indicated. Will remain available if needs arise.
--- NOTE | 2019-01-25 17:14 | NUR ---
CAME BACK FROM ERCP AT 1400, ON REGUALR DIET, PAIN FREE, SB ON TELE, 2L NC FOR COMFORT. WILL CONTINUE TO ASSESS AND ASSIST WITH ADLs NEEDED.
[2019-01-25 18:05] VITALS: BP 118/66
[2019-01-25 20:00] VITALS: BP 107/60
[2019-01-26 04:00] VITALS: BP 139/77
--- NOTE | 2019-01-26 05:10 | NUR ---
PT AOX4. VSS. PT SHOWS SB ON TELE. PT BLOOD SUGAR 271...CONTACTED PHYSICIAN AND GOT ORDERS FOR INSULIN. PT C/O EPIGASTRIC PAIN...GAVE TUMS AND THAT RELIEVED PAIN. PT SLEPT THRU NIGHT WITH CPAP. AFTER AM ROUNDS C/O EPIGASTRIC PAIN ADMINISTERED PAIN MEDS. WILL CONTINUE TO MONITOR PT.
[2019-01-26 05:29] LABS: ALBUMIN 2.7 g/dL (3.4-5.0); CALCIUM 8.2 mg/dL (8.5-10.1); POTASSIUM 3.9 mmol/L (3.5-5.1); TOTAL BILIRUBIN 1.9 mg/dL (<0.1-1.0); TOTAL PROTEIN 6.9 g/dL (6.4-8.2)
[2019-01-26 07:30] VITALS: BP 127/69
[2019-01-26 12:15] VITALS: BP 129/76
--- NOTE | 2019-01-26 12:15 | HC ---
[facility] [place] [address] [place] [address] CONSULTATION Name: EDEL DUQUE Room #: 206-P [facility] IN M.R.#: [id number] Admission: 01/22/19 Attend Phys: Su Daniels Discharge: Date of : 43 Report #: [id number] THIS REPORT FOR: //name// CC: Estelle Daniels DATE OF SERVICE: 01/23/2019 REASON FOR CONSULTATION: We were asked to see the patient for a large infrarenal abdominal aortic aneurysm. HISTORY OF PRESENT ILLNESS: The patient is a 73-year-old who was admitted with epigastric discomfort that began Monday. The patient states that he has had this intermittently over the last month or so and describes the pain as being identical to that when he had a gallbladder problem 1 year ago. The patient did have a cholecystectomy at that time. The patient reports epigastric discomfort, this came on Monday night after he had a beer and pizza. No history of nausea, vomiting, but the patient did take some Gaviscon with some relief at the time. We note that CT scan shows an infrarenal abdominal aortic aneurysm that measures up to 7.5 cm in size. PAST MEDICAL HISTORY: Significant for coronary artery disease. The patient had coronary artery bypass surgery here in 2011. The patient has a history of hypothyroidism; coronary bypass x 4; sleep apnea, using BiPAP; hypertension; hyperlipidemia; obesity; coronary stent placement. MEDICATIONS: At home includes aspirin, atorvastatin, metoprolol, glucosamine, chondroitin, tamsulosin, nitroglycerin p.r.n., omeprazole, fluoxetine, finasteride, levothyroxine, multivitamins. ALLERGIES: CODEINE. FAMILY HISTORY: Negative for aneurysm. SOCIAL HISTORY: The patient is , former smoker. Alcohol: Drinks beer weekly. REVIEW OF SYSTEMS: GENERAL: The patient denies chills. The patient did report having a fever of 100 degrees. EYES: No vision changes. HEENT: No headache, no hearing problems, no nasal or sinus drainage. RESPIRATORY: Denies shortness of breath, cough, sputum. CARDIAC: Epigastric discomfort, does not describe this as his anginal [facility] [address] [place] [address] CONSULTATION Name: EDEL DUQUE Room #: 206-P [facility] IN M.R.#: [id number] Admission: 01/22/19 Attend Phys: Su Daniels Discharge: Date of : 43 Report #: [id number] discomfort. No palpitations. GASTROINTESTINAL: As mentioned, some dyspepsia. No vomiting, no blood per mouth or rectum. GENITOURINARY: No urgency, frequency, or blood. MUSCULOSKELETAL: Some scattered arthritic discomfort, but no major bone or joint problems. NEUROLOGIC: No motor or sensory dysfunction. PSYCHIATRIC: On treatment for depression. SKIN: Denies rash or infection. PHYSICAL EXAMINATION: GENERAL: The patient sitting on side of bed, oriented and appropriate, seems comfortable. VITAL SIGNS: Temperature 36.6, heart rate 54, respiratory rate 18, blood pressure 122/74. HEENT: Normocephalic. Pupils are round, equal. No icterus, no arcus. NECK: No mass, no bruit. CHEST: Clear to auscultation. HEART: Rhythm regular. ABDOMEN: Soft. No tenderness, no mass, somewhat protuberant. EXTREMITIES: No clubbing, cyanosis or edema. MUSCULOSKELETAL: No bone or joint asymmetry or deformity. NEUROLOGIC: No obvious motor or sensory dysfunction. PSYCHIATRIC: Mood and affect are appropriate. PLAN: The patient is symptomatic, but I do not believe this is related to the aneurysm. The aneurysm is large; however, and should be addressed in the relatively near future. I would like to make sure the patient is free of other problems, particularly GI before we proceed with surgery. I do think that this is a reasonable anatomy for stent implant and I have discussed this with the patient who understands and agrees. Thank you for the consult. <ELECTRONICALLY SIGNED> By: Wei Reyna MD 01/26/19 1215 1139 2254 Wei Reyna MD /nt
[2019-01-26 16:19] VITALS: BP 134/66
--- NOTE | 2019-01-26 16:35 | NUR ---
PT STARTED ON A FULL LIWUID DIET. TOLERATED AMBULATING HALLS THIS AFTERNOON.
[2019-01-26 19:39] VITALS: BP 128/69
[2019-01-27 04:54] VITALS: BP 132/63
[2019-01-27 05:08] LABS: ALBUMIN 2.6 g/dL (3.4-5.0); CALCIUM 8.2 mg/dL (8.5-10.1); CREATININE 0.9 mg/dL (0.7-1.3); POTASSIUM 3.6 mmol/L (3.5-5.1); TOTAL BILIRUBIN 0.7 mg/dL (<0.1-1.0); TOTAL PROTEIN 6.4 g/dL (6.4-8.2)
--- NOTE | 2019-01-27 05:55 | NUR ---
PATIENTS CARES WEE ASSUMED AT SHIFT CHANGE. PATIENT WAS ASSESSED AND MEDS WERE PASSED. PATIENT DID SLEEP MOST OF THIS SHIFT. HE IS LOOKING FOR HIS AM MEDICATIONS. HOURLY ROUNDING WAS DONE AND THE BED IS IN A LOW AND LOCKED POSITION
[2019-01-27 08:13] VITALS: BP 135/69
[2019-01-27 11:34] VITALS: BP 131/69
--- NOTE | 2019-01-27 15:19 | NUR ---
PT ALERT AND ORIENTED. VSS. DENIED HAVING PAIN OR DISCOMFORT. SCHEDULED MEDS GIVEN ORDERED. NPO AFTER MIDNIGHT FOR SURGERY IN AM. NO CONCERNS AT THIS TIME WILL CONTINUE TO MONITOR.
[2019-01-27 15:39] VITALS: BP 122/65
[2019-01-27 19:43] VITALS: BP 137/66
[2019-01-28] VITALS (30 sets, daily range): BP systolic 100–142; BP diastolic 54–73
--- NOTE | 2019-01-28 05:25 | NUR ---
ASSESSMENT DOCUMENTED.PT BEEN RESTING IN NO ACUTE DISTRESS.VSS.A/OX4.ON MONITOR SINUS JENNIFER.PREOPE FOR SURGERY TODAY TOLERATED.DENIES PAIN.IV ANTIBIOTIC INFUSED ORDERED.CONSENT FORMS HAVE BEEN SIGNED.PT DENIES ANY CONCERNS AT THIS TIME.WILL CONT TO MONITOR PER POC.
--- NOTE | 2019-01-28 06:49 | NUR ---
PT LEFT TO OR VIA CART.REPORT GIVEN TO OR STAFF.
[2019-01-29] VITALS (15 sets, daily range): BP systolic 124–149; BP diastolic 57–71
--- NOTE | 2019-01-29 05:44 | NUR ---
PT AOX4. ON 2L NC. NO SIGNS OF DISTRESS AT REST. REFUSED CPAP FOR SLEEP. MEDICATED FOR PAIN RELIEF. VSS. AFEBRILE. ON CARDENE GTT AT 7.5 MG/HR FOR BP CONTROL. ADEQUATE URINE OUTPUT. NO COMPLAINS PRESENTLY. WILL CONTINUE TO MONITOR.
[2019-01-29 06:09] LABS: HEMATOCRIT 35.1 % (42.0-52.0); HEMOGLOBIN 11.9 gm/dL (14.0-18.0); MCH 31.7 pg (26.0-34.0); MCHC 33.9 g/dL (28.0-37.0); MCV 93.5 fL (80.0-100.0); RBC 3.75 mil/uL (4.50-6.00); RDW 14.3 % (10.5-14.5); WBC 14.6 thou/uL (4.0-11.0)
[2019-01-29 06:13] LABS: CALCIUM 7.8 mg/dL (8.5-10.1); POTASSIUM 3.7 mmol/L (3.5-5.1)
--- NOTE | 2019-01-29 10:04 | NUR ---
Nutrition: Pt seen for LOS. S/P AAA stent. Eat well, 75-100% of meals on heart healthy diet. BG 163-242 with A1C 6.3 and no prior hx of DM. Has been on SSI in ICU. REC adding carb controlled to diet order. Possible discharge today.
[2019-01-29 10:29] LABS: ALBUMIN 2.6 g/dL (3.4-5.0); DIRECT BILIRUBIN 0.3 mg/dL (<0.1-0.3); TOTAL BILIRUBIN 0.5 mg/dL (<0.1-1.0); TOTAL PROTEIN 6.5 g/dL (6.4-8.2)
[2019-01-29] MEDS ORDERED: FELODIPINE 5 MG5 M1 PO (10:37)
--- NOTE | 2019-01-29 10:38 | NUR ---
Dr. Daniels here. Update given. Reported that Dr. Madison told pt he was going home today. Cardene weaned off. Waiting one hour before dc art line. PT to come evaluate pt for safety at home.
[2019-01-29] MEDS ORDERED: ACTIGALL300 MG PO (10:39)
--- NOTE | 2019-01-29 14:24 | NUR ---
PT IS POD #1 STENT GRAFT REPAIR AND PLANS FOR DC HOME TODAY. P.T. EVAL'D AND SAFE FOR DC HOME. NO CM NEEDS AT DC.
--- NOTE | 2019-01-29 14:30 | NUR ---
pt discharged to home, all belongings with pt.
--- NOTE | 2019-01-29 14:49 | O ---
[facility] [place] [address] [place] [address] OPERATIVE REPORT Name: EDEL DUQUE Room #: 245-P [facility] IN M.R.#: [id number] Admission: 01/22/19 Attend Phys: Su Daniels Discharge: Date of : 43 Report #: [id number] THIS REPORT FOR: //name// CC: Estelle Daniels DATE OF SERVICE: 01/28/2019 PREOPERATIVE DIAGNOSIS: Abdominal aortic aneurysm. POSTOPERATIVE DIAGNOSIS: Abdominal aortic aneurysm. OPERATION: Stent graft implant for infrarenal abdominal aortic aneurysm with appropriate arteriography and Amplatz device occlusion of the accessory left renal artery and inferior mesenteric artery. SURGEON: Dr. Wei Reyna and Dr. William Mark. ANESTHESIA: General. SUPERVISOR [employer] PROCESSING: GONZALEZ Lloyd. ANESTHESIA: General. INDICATIONS: The patient is a 74-year-old who was admitted with abdominal pain. The patient was found to have a 7-cm infrarenal abdominal aortic aneurysm. 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 The patient was found to have gallstones in the common bile duct and this was treated successfully with an ERCP. The patient had been maintained on antibiotics prior to the ERCP and we followed the patient in the postoperative period to make sure that there was no evidence for infection. As such, stent graft implant was performed. TECHNIQUE: After general anesthesia was established, incisions were made in each groin to expose the common femoral artery on each side. 10,000 units of heparin were given. On each side, the common femoral was entered with arterial needle, long guidewire, and 6-British sheath. Through the sheath, a guidewire catheter exchange was performed so that there was ultimately a stiff Leroy wire in each femoral artery passing through the 6-British sheath. [facility] [address] [address] OPERATIVE REPORT Name: EDEL DUQUE Minna Room #: 245-P [facility] IN .R.#: [id number] Admission: 01/22/19 Attend Phys: Su Daniels Discharge: Date of : 43 Report #: [id number] On the right side, the 18-British introducer was placed through the right femoral cutdown over the stiff wire. Through this introducer, a visceral catheter was used to identify the left renal artery and the inferior mesenteric artery. An accessory left renal artery emanated from the neck of the aneurysm and this needed to be coiled. The visceral catheter was placed into this and a wire was passed distally into the left accessory renal artery and then a Berenstein catheter was placed over this wire. Through this catheter, a 6 mm Amplatz device was successfully deployed. The same sort of technique was performed in the inferior mesenteric artery. A guidewire was placed into the inferior mesenteric and then with the Berenstein catheter as a guide and then the catheter was advanced into the artery and through the catheter, an 8 mm Amplatz device was deployed. Successful occlusions seem to have been accomplished and attention was turned to the abdominal aortic aneurysm and stent graft. Through the 18-British introducer on the right, a 35 x 14.5 x 14 main body was placed. This was positioned so that it would be open just below the left renal artery. The left renal artery itself was identified using a visceral catheter and guidewire through the left-sided sheath. The device was given its initial deployment and the contralateral gate opened. The contralateral gate was entered through the left groin. At this point, the 12-British catheter was advanced through a left femoral cutdown over the stiff Amplatz wire and then exchanging this for the Glidewire over the catheter, the contralateral gate was opened. A pigtail catheter was deployed into the main body to show that the contralateral gate had indeed been cannulated. At this point, a retrograde iliac arteriogram was taken to illustrate the difference from the contralateral gate to the left hypogastric artery. With this measurement, we were able to select an 18 mm x 13.5 limb. This was deployed at the contralateral gate and extended with the landing zone above the hypogastric takeoff. A similar procedure was taken on the right side. At this point, the pigtail catheter was replaced into the right side and measurements were taken using a retrograde arteriogram from the left iliac artery to illustrate the gate from the deployed main body down to the right hypogastric takeoff. An 18 x 11.5 limb extension was used on the right for this purpose. Stiff wires were extended into the limbs on each side and over these on each side, a balloon was used serially to deploy the entire graft. After all of the areas of the graft had been fully expanded, a final arteriogram was taken through the pigtail catheter placed through the right side. This showed no [facility] [address] [place] [address] OPERATIVE REPORT Name: EDEL DUQUE Room #: 245-P [facility] IN M.R.#: [id number] Admission: 01/22/19 Attend Phys: Su Daniels Discharge: Date of : 43 Report #: [id number] evidence of landing zone or junction leaks. Satisfied with the position and deployment of the grafts, the dilators were replaced over the stiff wire into the sheaths and the sheaths and dilators were removed and then guidewires were removed. On each side, femoral cut downs were closed with interrupted Prolene. Flow was reestablished. Protamine was given to reverse the heparin and hemostasis was ascertained. The wounds were closed in layers and the patient was taken to the recovery area in good condition with strong distal pulses. All counts reported as correct. <ELECTRONICALLY SIGNED> By: Wei Reyna MD 01/29/19 1449 1607 1738 Wei Reyna MD /nt
--- NOTE | 2019-01-30 08:36 | P ---
[facility] [place] [address] PROCEDURE REPORT Name: EDEL DUQUE Room #: 245-P [facility] IN M.R.#: [id number] Admission: 01/22/19 Attend Phys: Su Daniels Discharge: 01/29/19 Date of : 43 Report #: [id number] THIS REPORT FOR: //name// CC: Estelle Daniels MD DATE OF SERVICE: 01/25/2019 PROCEDURE PERFORMED: ERCP with extension of sphincterotomy and stone removal. HISTORY OF PRESENT ILLNESS: The patient is a 73-year-old male with previous history of cholelithiasis, choledocholithiasis who underwent an ERCP, sphincterotomy, stone extraction and cholecystectomy in 2018. He was doing well from GI standpoint, but began having mid epigastric and right upper quadrant abdominal pain similar to his previous pain prior to the surgery and ERCP. His liver function tests were also elevated on admission. MRCP was performed yesterday that showed extensive choledocholithiasis, common bile duct is 1.4 cm in diameter. No intrahepatic ductal dilation noted. Normal appearing pancreas. The pancreatic duct, large infrarenal abdominal aortic aneurysm measuring 7.2 x 7.1 cm. Plan is for ERCP today. His white count was elevated at 15.8 on admission. He has now been on IV Zosyn. DESCRIPTION OF PROCEDURE: The risks and benefits of the procedure were explained to the patient, those risks including but not limited to bleeding, perforation, the risk of sedation as well as the potential for post-ERCP pancreatitis. He understood these risks and gave informed consent. The procedure was performed in the operating room under a general anesthesia. The patient again is on IV Zosyn scheduled at this time. He was also given 50 mg indomethacin rectal suppository prior to the procedure. Next, using a standard Olympus side-viewing ERCP scope, the scope was placed in the patient's mouth and advanced under direct vision through the esophagus, stomach and into the second portion of the duodenum. The major papilla was identified. Although the patient has had a sphincterotomy in the past, it appears to be scarred down somewhat. Next, using a [employer] 0.025 dome tipped sphincterotome catheter, the common bile duct was cannulated without difficulty and a cholangiogram was obtained. Multiple stones were noted within the common bile duct, approximately 8-10. Common bile duct was dilated at 1.5 cm. Intrahepatic ducts were normal. At this point, a guidewire was advanced into the intrahepatic ducts. The guidewire remained in place. I then extended the previous sphincterotomy without difficulty. At this point, the Sphincterotome catheter was removed and I left the wire in place. Next, I used a 2 cm wire basket and began clearing the duct from stones. Multiple stones and debris and sludge were removed. Multiple sweeps were performed. At this point, the basket was removed and a balloon catheter was advanced over the wire. I then performed multiple balloon sweeps with further debris being removed. At this point, a balloon occlusion [address] [address] PROCEDURE REPORT Name: EDEL DUQUE Room #: 245-P DIS IN M.R.#: [id number] Admission: 01/22/19 Attend Phys: Su Daniels Discharge: 01/29/19 Date of : 43 Report #: [id number] cholangiogram was obtained. No further filling defects were noted. I kept performing balloon sweeps until no further obvious debris was removed. The balloon catheter was removed. I once again went in with a wire basket and did several more sweeps with the basket. No further stones or defects were felt or seen on removal of the basket. At this point, the wire was removed. The scope was withdrawn and the procedure terminated. The patient tolerated the procedure well. IMPRESSION: Multiple stones within the common bile duct removed today with a wire basket and balloon catheter. No further filling defects were noted. Dilated common bile duct to 1.5 cm. Intrahepatic ducts were normal. Sphincterotomy was extended as well today. RECOMMENDATIONS: 1. Observe the patient post-procedure. 2. Monitor liver function tests. Thank you for allowing me to participate in his care. <ELECTRONICALLY SIGNED> By: Rick Perdomo MD 01/30/19 0836 [id number] [id number] Rick Perdomo MD /nt
== END 2019-01-29 14:30 | disposition home or self-care (01) | DRG 268 ==
LOC: ER 20:57 → EROBS 23:54 → 2N 23:54 → TBA 01-28 08:56 → ICU 01-28 14:00
PROVIDERS: Emergency Medicine; Internal Medicine Gastroenterology; Nurse Practitioner Family; Physician Assistant; Surgery Vascular Surgery; ADMIT Hospitalist
DX: I71.4 Abdominal aortic aneurysm, without rupture (principal); K85.90 Acute pancreatitis without necrosis or infection, unspecified; K80.50 Calculus of bile duct without cholangitis or cholecystitis without obstruction; I10 Essential (primary) hypertension; E78.5 Hyperlipidemia, unspecified; I25.10 Atherosclerotic heart disease of native coronary artery without angina pectoris; K83.8 Other specified diseases of biliary tract; R74.0 Nonspecific elevation of levels of transaminase and lactic acid dehydrogenase [LDH]; E03.9 Hypothyroidism, unspecified; K21.9 Gastro-esophageal reflux disease without esophagitis; M62.08 Separation of muscle (nontraumatic), other site; E87.6 Hypokalemia; G47.33 Obstructive sleep apnea (adult) (pediatric); E66.01 Morbid (severe) obesity due to excess calories; I73.9 Peripheral vascular disease, unspecified; Z95.1 Presence of aortocoronary bypass graft; Z90.49 Acquired absence of other specified parts of digestive tract; Z68.39 Body mass index [BMI] 39.0-39.9, adult; Z95.5 Presence of coronary angioplasty implant and graft; Z87.891 Personal history of nicotine dependence; Z88.6 Allergy status to analgesic agent; Z80.0 Family history of malignant neoplasm of digestive organs; Z83.71 Family history of colonic polyps
CPT/HCPCS: 10078; 10081; 47375; 50010; 50101; 50386; 50455; 51078; 51751; 54118; 56524; 56526; 56527; 56531; 56668; 56760; 57093; 62110; 62900; 65020; 70005

== ENCOUNTER → 2019-02-13 | Outpatient (CLI) | payer OTHER ==
[~2019-02-13] MED LIST changes: +ACTIGALL300 MG PO; +FELODIPINE 5 MG5 M1 PO
== END ==
LOC: ULTRA 14:38
DX: M79.604 Pain in right leg (principal); M79.605 Pain in left leg; M79.89 Other specified soft tissue disorders

== ENCOUNTER → 2019-03-06 | Outpatient (CLI) | payer OTHER ==
[2019-03-06 11:25] LABS: CREATININE 0.8 mg/dL (0.7-1.3)
== END ==
LOC: CAT 10:40
PROVIDERS: Nuclear Medicine Nuclear Cardiology
DX: I71.4 Abdominal aortic aneurysm, without rupture (principal); M47.819 Spondylosis without myelopathy or radiculopathy, site unspecified; Z90.49 Acquired absence of other specified parts of digestive tract; Z95.828 Presence of other vascular implants and grafts

== ENCOUNTER → 2019-12-11 | Outpatient (CLI) | payer OTHER | LOC: SJCVC 14:06 | PROVIDERS: ATTEND Internal Medicine | DX: R94.31 Abnormal electrocardiogram [ECG] [EKG] (principal); I44.0 Atrioventricular block, first degree; I25.10 Atherosclerotic heart disease of native coronary artery without angina pectoris; I71.4 Abdominal aortic aneurysm, without rupture; I10 Essential (primary) hypertension; E78.5 Hyperlipidemia, unspecified; G47.33 Obstructive sleep apnea (adult) (pediatric); Z95.828 Presence of other vascular implants and grafts; Z95.1 Presence of aortocoronary bypass graft ==

== ENCOUNTER → 2020-09-22 | Outpatient (CLI) | payer OTHER | LOC: SJCVCIMAG 06-12 09:54 | PROVIDERS: ATTEND Internal Medicine | DX: I25.10 Atherosclerotic heart disease of native coronary artery without angina pectoris (principal); I71.4 Abdominal aortic aneurysm, without rupture; I10 Essential (primary) hypertension; E78.5 Hyperlipidemia, unspecified; G47.33 Obstructive sleep apnea (adult) (pediatric); Z95.1 Presence of aortocoronary bypass graft; Z95.828 Presence of other vascular implants and grafts; Z72.89 Other problems related to lifestyle; Z87.891 Personal history of nicotine dependence; Z79.899 Other long term (current) drug therapy ==

== ENCOUNTER 2020-09-27 17:41 | Inpatient (IN) | payer OTHER ==
[~2020-09-27] VITALS: Ht 180.3 cm; Wt 125.6 kg
--- NOTE | ~2020-09-27 | P ---
[facility] [place] [address] PROCEDURE REPORT Name: EDEL DUQUE Room #: 355-P [facility] IN M.R.#: [id number] Admission: 09/27/20 Attend Phys: Bolivar Berry MD Discharge: 09/30/20 Date of : 43 Report #: [id number] THIS REPORT FOR: cc: Estelle Jurado MD, Jennifer L MD McElhinney, Christian C. MD ~ DOC #: [id number] cc: MD Rick Draper MD DATE OF SERVICE: 09/29/2020 PROCEDURE PERFORMED: ERCP with sphincterotomy extension and balloon sweeps. HISTORY OF PRESENT ILLNESS: The patient is a 75-year-old male who has had a previous history of choledocholithiasis despite having cholecystectomy. He underwent an ERCP by myself in 2019 when he presented with recurrent right upper quadrant abdominal pain and elevated liver function tests, mildly. At that time, we performed an MRCP, which showed multiple stones in his common bile duct. This was despite him having a previous ERCP with sphincterotomy and stone removal, the year before. The patient was doing well until recently with midepigastric abdominal pain, nausea and fever. His white count remained stable. His bilirubin was mildly elevated on admission at 1.1, today is normal. The plan was to proceed with a repeat MRCP to evaluate if any new stones. However, he has had an abdominal aortic aneurysm with a stent placed within the last two years and this would cause artifact. The patient has been on Zosyn since admission, despite this. Initially, he was having fevers. He currently is afebrile at this time. He also states the pain is identical to his pain when he had common bile duct stones, two years ago. Therefore, plan is for repeat ERCP at this time. DESCRIPTION OF PROCEDURE: The risks and benefits of the procedure were explained to the patient, those risks including but not limited to bleeding, perforation and the risk of sedation as well as the potential risk for post-ERCP pancreatitis. He understood these risks and gave informed consent. The procedure was performed in the operating room under general anesthesia. The patient is already on IV Zosyn on a scheduled basis. A 50 mg indomethacin suppository was given rectally prior to the procedure. Next, using a standard Olympus side-viewing ERCP scope, the scope was placed in the patient's mouth and advanced under direct vision through the esophagus, stomach and into the second portion of the duodenum. The major papilla area was identified. The patient again had 2 previous sphincterotomies. There appears to be somewhat granulation tissue in this area. Next, using a [employer] 0.025 dome tip sphincterotome catheter, the common bile duct was cannulated without difficulty and a cholangiogram was obtained. No obvious filling defects were noted; however, the common bile duct did remain dilated to about 15 mm. Intrahepatic ducts were [address] [address] PROCEDURE REPORT Name: EDEL DUQUE Room #: 355-P [facility] IN M.R.#: [id number] Admission: 09/27/20 Attend Phys: Bolivar Berry MD Discharge: 09/30/20 Date of : 43 Report #: [id number] mildly dilated at the distal portion. Otherwise, the intrahepatic ducts were normal. At this point, a wire was advanced into the intrahepatic ducts and I did perform a slight extension of previous sphincterotomy without difficulty. Next, the sphincterotome was removed and a balloon catheter was advanced over the wire. Next, several balloon sweeps were then performed with no evidence of stones or debris were noted on balloon sweeps. At this point, a balloon occlusion cholangiogram was obtained. No filling defects were noted. Again, good bile drainage was noted at this point. The wire and balloon catheter were removed. The scope was then brought back up into the patient's stomach, at which point I noticed that he had several gastric polyps, one appeared fairly large with a small amount of bright red blood at the tip. Because of this, the scope was then withdrawn and a standard EGG Olympus scope was placed in the patient's mouth and advanced into the stomach. Multiple small polyps were noted in the gastric fundus. Mild gastritis was also noted. Biopsies obtained to rule out H. pylori. The larger pedunculated polyp, which was approximately 1.5 cm was noted in the upper body, near the high cardia. This was removed by snare cautery. There was no evidence of bleeding after polypectomy. I did place a single endoclip however. The polyp was then grasped with a Ley net and then removed without difficulty. The scope was reintroduced into the patient's stomach. Again, there was no evidence of bleeding. The esophagus was normal. The GE junction was normal. The scope was then withdrawn and the procedure terminated. The patient tolerated the procedure well. IMPRESSION: 1. ERCP showing dilated common bile duct. No evidence of obvious filling defects. Previous sphincterotomy was extended. Multiple balloon sweeps were performed. 2. Gastric polyps, largest was pedunculated and removed by snare cautery with placement of endoclip. 3. Gastritis, biopsies obtained. 4. Otherwise, normal upper endoscopy. RECOMMENDATIONS: 1. Await biopsy results. 2. Observe the patient post-ERCP with sphincterotomy and balloon sweeps. He is improving at this time. We will continue current IV antibiotics and monitor liver function test. Thank you for allowing me to participate in his care. Rick Perdomo MD [facility]/[address] [address] PROCEDURE REPORT Name: EDEL DUQUE [facility] Room #: 355-P DIS IN M.R.#: [id number] Admission: 09/27/20 Attend Phys: Bolivar Berry MD Discharge: 09/30/20 Date of : 43 Report #: [id number] By: [id number] Rick Perdomo MD /nt
[2020-09-27 18:02] VITALS: BP 153/61
[2020-09-27 18:25] LABS: BASOPHILS 0.6 % (0.0-2.0); EOSINOPHILS 0.3 % (0.0-3.0); HEMATOCRIT 34.8 % (42.0-52.0); HEMOGLOBIN 12.1 gm/dL (14.0-18.0); LYMPHOCYTES 7.6 % (24.0-44.0); MCH 32.1 pg (26.0-34.0); MCHC 34.7 g/dL (28.0-37.0); MCV 92.5 fL (80.0-100.0); MONOCYTES 10.6 % (1.0-8.0); PLATELET COUNT 149 thou/uL (150-400); POLYS 80.9 % (36.0-66.0); RBC 3.77 mil/uL (4.50-6.00); RDW 14.3 % (10.5-14.5); WBC 9.9 thou/uL (4.0-11.0)
[2020-09-27] MEDS ORDERED: CARVEDILOL12.5 MG PO (18:29)
[2020-09-27 18:35] LABS: ANION GAP 7 mmol/L (7-16); BUN 20 mg/dL (7-18); CALCIUM 8.4 mg/dL (8.5-10.1); CHLORIDE 100 mmol/L (98-107); CO2 30 mmol/L (21-32); CREATININE 1.1 mg/dL (0.7-1.3); GLUCOSE 140 mg/dL (74-106); POTASSIUM 3.5 mmol/L (3.5-5.1); SODIUM 137 mmol/L (136-145)
[2020-09-27 18:46] LABS: ALBUMIN 3.2 g/dL (3.4-5.0); LIPASE 55 U/L (73-393); SGOT 17 U/L (15-37); SGPT 24 U/L (16-63); TOTAL BILIRUBIN 1.1 mg/dL (0.2-1.0); TOTAL PROTEIN 6.8 g/dL (6.4-8.2); TROPONIN-I <0.06 ng/mL (<0.06)
[2020-09-27 21:28] LABS: URINE BILIRUBIN NEGATIVE (Negative); URINE BLOOD 1+ (Negative); URINE CLARITY CLEAR; URINE COLOR YELLOW; URINE GLUCOSE-RANDOM* NEGATIVE (Negative); URINE KETONES NEGATIVE (Negative); URINE LEUKOCYTES-REFLEX NEGATIVE (Negative); URINE NITRITE-REFLEX NEGATIVE (Negative); URINE PROTEIN (DIPSTICK) NEGATIVE (Negative); URINE SPECIFIC GRAVITY <= 1.005 (1.005-1.035); URINE UROBILINOGEN 0.2 E.U./dl (0.2-1.0)
[2020-09-27 21:37] LABS: SQUAMOUS None Seen /LPF (0-3)
[2020-09-27 21:38] LABS: BACTERIA-REFLEX None Seen /HPF (None Seen); CASTS None Seen /LPF (None Seen); CRYSTALS None Seen /LPF (None Seen); URINE RBC 1-2 Rare /HPF (NONE SEEN); URINE WBC-REFLEX 0-5 Rare /HPF (0-5)
[2020-09-27 22:15] VITALS: BP 116/50
[2020-09-27 22:22] VITALS: BP 110/49
[2020-09-27 22:43] VITALS: BP 148/74
--- NOTE | 2020-09-28 00:17 | NUR ---
PT ADMITTED FROM ER FOR INTRACTABLE ABDOMINAL PAIN. VSS AFEBRILE HERE ON UNIT. NO N/V PRESENTLY. INSTRUCTED PT ON FALL PRECAUTIONS. ORIENTED PT TO ROOM. NO S/S DISTRESS PRESENTLY.
[2020-09-28 03:22] VITALS: BP 131/70
[2020-09-28] MEDS ORDERED: LEVOTHYROXINE100 MC2 PO (03:29)
[2020-09-28] MEDS ORDERED: LEVOTHYROXINE88 MC1 PO (03:30)
[2020-09-28 05:21] LABS: CHOLESTEROL 96 mg/dL (<200); HDL CHOLESTEROL 46 mg/dL (>40); LDL CHOLESTEROL 36 mg/dL (<100); TC:HDL 2.1 Ratio (Not establshd); TRIGLYCERIDE 71 mg/dL (<150); VLDL 14 mg/dL (<40)
[2020-09-28 05:22] LABS: SERUM ASSESSMENT Clear
[2020-09-28 06:35] LABS: HEMATOCRIT 33.2 % (42.0-52.0); MCHC 33.3 g/dL (28.0-37.0); MCV 93.2 fL (80.0-100.0); RBC 3.56 mil/uL (4.50-6.00); RDW 14.6 % (10.5-14.5); WBC 7.6 thou/uL (4.0-11.0)
[2020-09-28 06:54] LABS: ANION GAP 10 mmol/L (7-16); BUN 16 mg/dL (7-18); CALCIUM 7.8 mg/dL (8.5-10.1); CHLORIDE 101 mmol/L (98-107); CO2 30 mmol/L (21-32); GLUCOSE 135 mg/dL (74-106); POTASSIUM 3.4 mmol/L (3.5-5.1); SODIUM 141 mmol/L (136-145); TROPONIN-I <0.06 ng/mL (<0.06)
--- NOTE | 2020-09-28 07:03 | EKG ---
[address] [address] ELECTROCARDIOGRAM REPORT Name: EDEL DUQUE Room #: 355-P ADM IN M.R.#: [id number] Admission: 09/27/20 Attend Phys: Jolie Argueta MD Discharge: Date of : 43 Report #: [id number] [facility] ED Test Date: 2020-09-27 Test Time: 17:46:55 Pat Name: EDEL DUQUE Department: Room: [facility] Gender: M Litigator: EMORY : 1945 Requested By: Erica Henderson Order Number: [id number] MD: Aaron Vogt Measurements Intervals Grover Rate: 70 P: -11 MN: 257 QRS: 28 QRSD: 118 T: 71 QT: 452 QTc: 488 Interpretive Statements Sinus rhythm Prolonged MN interval Nonspecific intraventricular conduction delay Nonspecific repol abnormality, diffuse leads Compared to ECG 01/22/2019 21:13:21 First degree AV block now present Intraventricular conduction delay now present Early repolarization now present Myocardial infarct finding no longer present T-wave abnormality no longer present Possible ischemia no longer present Prolonged QT interval no longer present Electronically Signed On 09-28-2020 7:03:24 CDT by Aaron Vogt [email or web address] <ELECTRONICALLY SIGNED> By: Aaron Vogt MD, [facility] 09/28/20 0703 45 45 Aaron Vogt MD, [facility] /EPI
[2020-09-28 08:02] VITALS: BP 138/75
[2020-09-28 12:49] LABS: URINE BILIRUBIN NEGATIVE (Negative); URINE BLOOD 1+ (Negative); URINE CLARITY CLEAR; URINE COLOR YELLOW; URINE GLUCOSE-RANDOM* NEGATIVE (Negative); URINE KETONES NEGATIVE (Negative); URINE LEUKOCYTES-REFLEX NEGATIVE (Negative); URINE NITRITE-REFLEX NEGATIVE (Negative); URINE PROTEIN (DIPSTICK) NEGATIVE (Negative); URINE UROBILINOGEN 0.2 E.U./dl (0.2-1.0)
[2020-09-28 13:04] LABS: MUCUS 0-3 Light strn/LPF (None Seen); SQUAMOUS 0-3 Few /LPF (0-3)
[2020-09-28 13:05] LABS: BACTERIA-REFLEX 1-9 Few /HPF (None Seen); CASTS None Seen /LPF (None Seen); CRYSTALS None Seen /LPF (None Seen); URINE RBC 1-2 Rare /HPF (NONE SEEN); URINE WBC-REFLEX 0-5 Rare /HPF (0-5)
--- NOTE | 2020-09-28 14:01 | NUR ---
INITIAL ASSESSMENT: SW reviewed chart and spoke with nursing and attending physician. Pt was admitted from home due to intractable abdominal pain. Pt had negative COVID test on 09/27. Pt is on 2L of O2 and IV abx. SW met with pt at bedside. Introduced role of SW. Pt is alert/orientated x 4. Pt reports he lives at home alone. Pt's dtr is supportive and involved in his care. Prior to admission, pt was independent with ADLs. Pt states he does have a cane to use if needed. Pt has a bipap machine. No hx of services or post-acute placement. Pt's PCP is Dr. Estelle Jurado. Plan is for pt to discharge home when medically stable. SW is following to assist as needed with discharge planning.
[2020-09-28 15:58] VITALS: BP 140/63
[2020-09-28 18:38] VITALS: BP 131/71
--- NOTE | 2020-09-28 19:33 | NUR ---
RN ASSUMED PT'S CARE AT 0700AM, PT IS A&OX3, PT IS ON O2 2L/MIN/NC, PT IS ON BIPAP WHEN PT IS SLEEPING, PT'S ABD PAIN CAN CONTROL AT MOST OF TIME, RN HAS REPORTED HOSPITAL DR AND GI DR ABOUT PT'S FEVER , NEW ORDER RECEIVED , PT STARTS NEW IV ABX AND ABD MRI TOMORROW.
[2020-09-28 20:22] VITALS: BP 128/60
[2020-09-29 03:51] VITALS: BP 124/66
--- NOTE | 2020-09-29 04:16 | NUR ---
WEARING HIS CPAP TONIGHT. NPO PAST MIDNIGHT FOR MRI THIS AM. STATED THAT HIS PAIN LEVEL HAS BEEN UNDER CONTROL TONIGHT. MRI SCREENING SHEET FAXED TO MRI DEPT. [facility] REVIEWED.
[2020-09-29 05:14] LABS: HEMATOCRIT 32.7 % (42.0-52.0); HEMOGLOBIN 10.7 gm/dL (14.0-18.0); MCH 30.8 pg (26.0-34.0); MCHC 32.7 g/dL (28.0-37.0); MCV 94.1 fL (80.0-100.0); RBC 3.47 mil/uL (4.50-6.00); RDW 14.7 % (10.5-14.5); WBC 7.9 thou/uL (4.0-11.0)
[2020-09-29 05:33] LABS: ALBUMIN 2.6 g/dL (3.4-5.0); CALCIUM 7.7 mg/dL (8.5-10.1); CREATININE 1.1 mg/dL (0.7-1.3); POTASSIUM 3.1 mmol/L (3.5-5.1); TOTAL BILIRUBIN 0.8 mg/dL (0.2-1.0); TOTAL PROTEIN 6.2 g/dL (6.4-8.2)
[2020-09-29 07:34] VITALS: BP 128/71
[2020-09-29 14:23] VITALS: BP 140/74
--- NOTE | 2020-09-29 14:28 | NUR ---
SW reviewed chart and spoke with nursing and attending physician. Pt has been febrile and is on 2L of O2. PT is on IV abx. Pt to have an MRCP today. PT/OT ordered to evaluate pt for discharge needs. SW is following to assist as needed with discharge planning.
[2020-09-29 15:00] VITALS: BP 141/70
[2020-09-29 15:53] VITALS: BP 123/65
--- NOTE | 2020-09-29 18:07 | NUR ---
RN ASSUMED PT'S CARE AT 0700AM, PT IS A&OX4, PT IS CONTINUING IV ABX AND NS 75ML/HR, PT IS ON O2 2-3L/MIN/NC . PT HAS DONE ERCP IN GI LAB, AFTER PROCEDURE, PT 'S VS ARE STABLE, PT DENIES PAIN AND N/V, PT IS TOLERATIVE LUNCH AND DINNER. PT DOES NOT HAVE SOB BY THIS TIME.
--- NOTE | 2020-09-29 18:17 | NUR ---
RN ASSUMED PT'S CARE AT 0700AM, PT IS A&OX2 ( PERSON AND PLACE ), PT CAN FOLLOW COMMANDS, BUT PT IS CONFUSED AT TIME, PT IS CONTINUING IV ABX , PT IS ON O2 2L/MIN/NC, PT'S VS ARE STABLE, PT GETS UP TO USED BSC WITH Assist, pt 's family stay at pt's bedside, PT NEED HELP ADL .
[2020-09-29 19:30] VITALS: BP 141/65
[2020-09-30 04:24] VITALS: BP 126/59
--- NOTE | 2020-09-30 04:58 | NUR ---
RESTING QUIETLY TONIGHT. HE STATED THAT HE IS FEELING BETTER. HE ATE SOME SNACKS AT BEDTIME AND SETTLED DOWN FOR THE NIGHT. CONTINUES ON IV ANTIBIOTICS. HE IS LOOKING FORWARD TO GETTING HOME.
[2020-09-30 05:05] LABS: HEMATOCRIT 34.6 % (42.0-52.0); HEMOGLOBIN 11.6 gm/dL (14.0-18.0); MCH 31.2 pg (26.0-34.0); MCHC 33.5 g/dL (28.0-37.0); RBC 3.72 mil/uL (4.50-6.00); RDW 14.1 % (10.5-14.5); WBC 6.1 thou/uL (4.0-11.0)
[2020-09-30 05:13] LABS: CALCIUM 7.7 mg/dL (8.5-10.1); CREATININE 1.1 mg/dL (0.7-1.3); MAGNESIUM 2.1 mg/dL (1.8-2.4); POTASSIUM 4.2 mmol/L (3.5-5.1)
[2020-09-30 07:26] VITALS: BP 168/85
[2020-09-30] MEDS ORDERED: AUGMENTIN 875-1 EACH PO (12:16)
[2020-09-30 12:48] VITALS: BP 162/82
--- NOTE | 2020-09-30 15:57 | NUR ---
PT'S ABD PAIN AND UTI HAVE IMPROVED, PT IS A&OX3, PT IS OFF O2 TODAY, PT'S VS ARE STABLE, PT WAS DC TO HOME AT 1430PM, PT UNDERSTAND DC TEACHING WELL.
--- NOTE | 2020-10-02 18:06 | PATH ---
[facility] [address] [place] [address] PATHOLOGY RPT PROCEDURE Name: JESSE DUQUE Room #: 355-P DIS IN M.R.#: [id number] Admission: 09/27/20 Date of : 43 Discharge: 09/30/20 Report #: [id number] Path Case #: [id number] [facility] Accession Number: [id number] . 01 Material submitted: . PART A: gastrointestinal site - BIOPSY OF GASTRITIS PART B: gastrointestinal site - GASTRIC POLYP . 01 Clinical history: . EGD ERCP . 02 Diagnosis: A. Gastric mucosa, gastritis, rule out H. pylori, endoscopic biopsy: - Mild chronic gastritis. - One fragment compatible with a fundic gland polyp. - Negative for intestinal metaplasia or atrophy. - Negative for Helicobacter pylori (properly controlled immunohistochemical stain performed). . B. Polyp, gastric polyp, endoscopic biopsy: - Inflamed and ulcerated fundic gland polyp. - Negative for dysplasia. . (IUV:tonny; 10/02/2020) [facility] 10/02/2020 1246 Local . 02 Electronically signed: . Trinidad Amaya MD, Pathologist NPI- [id number] . 01 Gross description: . A. Received in formalin labeled "Centella, Jesse and biopsy gastritis rule out H. pylori". Received are multiple webb-brown soft tissue fragments ranging from 0.3-0.5 cm. Specimen is entirely submitted in cassette A1. . B. Received in formalin labeled "Centella, Jesse and gastric polyp". Received is a polypoid webb-brown soft tissue fragment measuring 2.3 x 1.0 x 1.0 cm. The surgical margin is inked black. The specimen is entirely submitted in cassette B1 and B2.([facility]; 09/30/2020) . [facility] 10/02/2020 1242 Local . 02 Pathologist provided ICD-10: K29.50, K31.[address] . [address] [address] PATHOLOGY RPT PROCEDURE Name: JESSE DUQUE [facility] Room #: 355-P [facility] IN M.R.#: [id number] Admission: 09/27/20 Date of : 43 Discharge: 09/30/20 Report #: [id number] Path Case #: [id number] [facility] . [id number], [id number], [id number] Specimen Comment: A courtesy copy of this report has been sent to [phone], [phone]- Specimen Comment: [phone] Specimen Comment: Report sent to DR HOLT,DR WHALEN / DR LEÓN Performed at: [address], [place] [id number] MD Heriberto White MD Phone: [phone] Performed at: [address] [id number] MD Trinidad Amaya MD Phone: [phone]
== END 2020-09-30 14:42 | disposition home or self-care (01) | DRG 444 ==
LOC: ER 17:41 → 3W 22:21 → EROBS 22:21 → 3W 22:22
PROVIDERS: Nurse Practitioner; Nurse Practitioner Family; ADMIT Hospitalist; ATTEND Hospitalist
PROC: 5A09357 Assistance with Respiratory Ventilation, Less than 24 Consecutive Hours, Continuous Positive Airway Pressure (ICD-10-PCS; principal; 2020-09-28)
PROC: 5A09357 Assistance with Respiratory Ventilation, Less than 24 Consecutive Hours, Continuous Positive Airway Pressure (ICD-10-PCS; 2020-09-29)
PROC: 0F798ZZ Dilation of Common Bile Duct, Via Natural or Artificial Opening Endoscopic (ICD-10-PCS; 2020-09-29)
PROC: BF101ZZ Fluoroscopy of Bile Ducts using Low Osmolar Contrast (ICD-10-PCS; 2020-09-29)
PROC: 0DB68ZZ Excision of Stomach, Via Natural or Artificial Opening Endoscopic (ICD-10-PCS; 2020-09-29)
PROC: 0DB68ZX Excision of Stomach, Via Natural or Artificial Opening Endoscopic, Diagnostic (ICD-10-PCS; 2020-09-29)
DX: K80.80 Other cholelithiasis without obstruction (principal); J96.01 Acute respiratory failure with hypoxia; J18.9 Pneumonia, unspecified organism; R10.9 Unspecified abdominal pain; I25.10 Atherosclerotic heart disease of native coronary artery without angina pectoris; Z20.822 Contact with and (suspected) exposure to COVID-19; E78.5 Hyperlipidemia, unspecified; E03.9 Hypothyroidism, unspecified; E66.01 Morbid (severe) obesity due to excess calories; I71.4 Abdominal aortic aneurysm, without rupture; N40.0 Benign prostatic hyperplasia without lower urinary tract symptoms; Z90.49 Acquired absence of other specified parts of digestive tract; Z88.6 Allergy status to analgesic agent; Z95.1 Presence of aortocoronary bypass graft; Z68.38 Body mass index [BMI] 38.0-38.9, adult; Z95.5 Presence of coronary angioplasty implant and graft; G47.33 Obstructive sleep apnea (adult) (pediatric); Z87.891 Personal history of nicotine dependence
CPT/HCPCS: 10879; 62110; 62900; 65131; 70005